=== PATIENT | female | born 1945 | race Caucasian/White ===

== ENCOUNTER 2020-02-03 16:52 | Observation (INO) | payer MEDICARE ==
[2020-02-03] MEDS ORDERED: Magnesium 2 GM/50 ML BAG (IN WATER) ONE (17:39)
--- NOTE | 2020-02-03 17:40 | RAD ---
Chest one view HISTORY: Palpitations. FINDINGS: Cardiac silhouette and pulmonary vasculature are unremarkable. Slight leftward deviation of the upper trachea with the appearance of left thyroid lobe prominence. Mediastinum is midline. Calcification over the aortic arch. No lobar consolidation or evidence of pne umothorax. IMPRESSION : Atherosclerosis. No abnormalities are demonstrated.
[2020-02-03 18:03] LABS: CKMB 1.3 ng/mL (0-6.6)
[2020-02-03] MEDS ORDERED: Ondansetron PF 4 MG/2 ML Vial IVP PRN (18:26)
[2020-02-03] MEDS ORDERED: Calcium Carbonate 500 MG ChewTAB PO PRN (18:26)
[2020-02-03] MEDS ORDERED: Acetaminophen 325 MG TAB PO PRN (18:26)
[2020-02-03] MEDS ORDERED: Senokot S 8.6-50 MG TAB PO PRN (18:26)
[2020-02-03] MEDS ORDERED: HYDROcodone/Acetaminophen 5/325 mg Tablet PO PRN (18:26)
[2020-02-03] MEDS ORDERED: Guaifenesin DM 100-10/5 ML UDCUP PO PRN (18:26)
[2020-02-03] MEDS ORDERED: Bisacodyl 10 MG SUPP PR PRN (18:26)
--- NOTE | 2020-02-03 19:03 | HP ---
REASON FOR ADMISSION: SVT; syncopal episodes, multiple. HISTORY OF PRESENTING ILLNESS: Patient gives history of multiple blackouts, which she calls it as spells that happened this morning nearly three of them. This started out 10 days back on a Tuesday when she had 2 episodes while she was in the kitchen. She says she would black out and come back likely for a few seconds. This happened twice on that Tuesday and again once more on the following Tuesday. When it happened 10 days back on a Tuesday, patient went to an urgent care in [place] and she was told her blood pressure was high and she also needs to see a rotor pilot. They called Dr. Malone's office and the earliest appointment they could get was on February 21. She has known murmur which was diagnosed nine years back, likely aortic stenosis. She has not had any further echo after that. No complaints of chest pain or fever. No cough or expectoration. No complaints of any current thyroid issue as such. Patient has never had a stress test in her life. PAST MEDICAL AND SURGICAL HISTORY: History of benign thyroid mass, for which she has seen Dr. Betancourt and had a fine-needle aspiration done in his office, which turned out to be benign; hypertension; appendectomy; hysterectomy; and echo done nine years back for likely aortic stenosis. Last colonoscopy was in 1962 and has never had one done. No history of bleeding per patient. CURRENT MEDICATIONS: 1. Patient is on aspirin 81 mg p.o. daily. 2. Lisinopril 20 mg p.o. daily. ALLERGIES: ALLERGIC TO PENICILLIN AND SULFA. PERSONAL HISTORY: Does not abuse alcohol or drugs. No history of smoking. She is the primary caregiver for her , who has had a tracheostomy, throat cancer and has also had a stroke and has essentially been bed-bound for the last 10 months. FAMILY HISTORY: Mother at the age of 69. She has had history of dementia. Father at the age of 83 from natural causes. CODE STATUS: Full. Power of patent prosecution attorney is her daughter, Shannon Cheek, as her is very sick. REVIEW OF SYSTEMS: CONSTITUTIONAL: Negative for weight loss or gain, ability to conduct usual activities. SKIN: Negative for rash, itching. EYES: Negative for double vision, pain. ENT/MOUTH: Negative for nose bleeding, neck stiffness, pain, tenderness. CARDIOVASCULAR: Negative for palpitations, dyspnea on exertion, orthopnea. RESPIRATORY: Negative for shortness of breath, wheezing, cough, hemoptysis, fever or night sweats. GASTROINTESTINAL: Negative for poor appetite, abdominal pain, heartburn, nausea , vomiting, constipation, or diarrhea. GENITOURINARY: Negative for urgency, frequency, dysuria, nocturia. MUSCULOSKELETAL: Negative for pain, swelling. NEUROLOGIC/PSYCHIATRIC: Negative for anxiety, depression. ALLERGY/IMMUNOLOGIC: Negative for skin rash, bleeding tendency. PHYSICAL EXAMINATION: GENERAL: Patient is a 74-year-old female, who is currently not in any acute distress. VITAL SIGNS: Blood pressure 158/100, pulse 86 per minute, respiratory rate 18 per minute, temperature 97.8 degrees Fahrenheit, and saturating 98% on room air. NECK: Supple. No elevated JVD. HEENT: Eyes; extraocular muscles intact. Pupils reacting to light. Oral cavity, mucous membranes are moist. No exudates or congestion. CARDIOVASCULAR SYSTEM: S1 and S2 heard. Murmur plus. RESPIRATORY: Air entry 1+ bilateral. No rales or rhonchi. ABDOMEN: Soft. Bowel sounds heard. No tenderness, rigidity, or guarding. EXTREMITIES: No peripheral edema or calf tenderness. VASCULAR SYSTEM: Peripheral pulses 1+ bilateral. No ischemic ulcerations or gangrene. CENTRAL NERVOUS SYSTEM: No gross focal motor deficits noted. Patient is alert, awake, and oriented well. PSYCHIATRIC SYSTEMS: Patient's mood is euthymic. No hallucinations or delusions. LABORATORY DATA: Patient has had three EKGs done. The first EKG done at 2:46 p.m. shows SVT with RBBB at the rate of 225 beats per minute. She has had a repeat EKG done at 2:51 p.m., which shows SVT at 222 beats per minute. QRS duration was 162 milliseconds. A third EKG done here shows normal sinus rhythm at 78 beats per minute with no gross ST-T wave changes. Chest x-ray done shows no abnormalities. Patient has had a prior ultrasound of the thyroid done in October of 2014, which showed a complex mass in the left lobe of thyroid measuring 4 cm. White count of 10, H and H 15 and 48, platelet count 218, MCV is 96 with 49% neutrophils and 34 % lymphocytes. Electrolytes stable. BUN 20, creatinine 1.1, and serum glucose 117. Liver enzymes within normal limits. Albumin 4.5. CK-MB 1.3, troponin I 0.04, and BNP 73. TSH 1.0. CLINICAL IMPRESSION AND PLAN: Patient will be admitted to telemetry under observation for now and can be switched over to inpatient if any procedures are planned, She has had recurrent episodes of supraventricular tachycardia with recurrent episodes of brief syncopal episodes. She also has likely aortic stenosis based on clinical exam. We will obtain echo with 2D Doppler for LV function. She has had 2 episodes of supraventricular tachycardia which spontaneously resolved in the ER. We will obtain a thyroid test, including ultrasound. Patient had plans to see Dr. Malone in his office on February 21. We will consult him. She will be kept n.p.o. after midnight. We will gently hydrate her with normal saline at 60 mls/hour. She will be on full-dose aspirin and we will place her on Lopressor 25 mg twice daily for now and she will be closely monitored on telemetry. Her has a PET scan scheduled on tuesday for his throat cancer and patient wants to be discharged by then so she could accompany him if possible. Job ID: [id number] [facility]
--- NOTE | 2020-02-03 19:52 | ULT ---
Thyroid sonogram HISTORY: Palpitations. Tachycardia. Thyroid mass. COMPARISON: 11/14/2014. FINDINGS: The right thyroid lobe measures up to 3.7 cm. It has a heterogeneous echotexture. There are 3 tiny cysts. 2. Very small lobular well circumscribed heterogeneous partially isoechoic nodules are present. They measure 0.7 cm and 0.6 cm greatest diameters. Isthmus is normal appearance. Left thyroid lobe measures up to 4.8 cm and contains a large, very heterogeneous lobular solid partia lly hypoechoic mass. It measures up to 4.4 cm length by 2.1 cm depth. Internal cystic component is apparent. The appearance of the lesion is not significantly changed in size and appearance from October 2014 exam . IMPRESSION : Large dominant mass of the left thyroid lobe is not significantly changed from the 2015 exam. Needle aspiration was performed. TI RADS 4. Moderately suspicious. Based on the appearance and size, tissue sampling is appropriate. Please correlate with results from prior FNA cytology.
[2020-02-03 21:12] LABS: Troponin I 0.037 ng/mL (< 0.028)
[2020-02-03] MEDS: Metoprolol Tartrate 25 MG TAB PO SCH (22:23)
[2020-02-03] MEDS: Sodium Chloride 0.9% 1,000 ML IV SCH (22:23)
[2020-02-03] MEDS: Famotidine 20 MG TAB PO SCH (22:28)
[2020-02-03 23:41] LABS: Troponin I 0.034 ng/mL (< 0.028)
[2020-02-04 00:02] VITALS: BMI 25.4
[2020-02-04 04:41] LABS: #Basophils 0.1 thou/uL (0.0-0.2); #Eosinphils 0.4 thou/uL (0.0-0.7); #Lymphocytes 2.3 thou/uL (1.20-3.40); #Monocytes 0.8 thou/uL (0.11-0.59); #Neutrophils 3.3 thou/uL (1.40-6.50); %Basophils 1.1 % (0.0-1.0); %Eosinophils 5.8 % (0.0-10.0); %Lymphocytes 34.1 % (21.0-51.0); %Monocytes 11.3 % (0.0-10.0); %Neutrophils 47.6 % (42.0-75.0); Hemoglobin 14.2 g/dL (12.0-16.0); Mean Corpuscular Hemoglobin 31.5 pg (27.0-31.0); Mean Corpuscular Volume 95.4 fL (78.0-98.0); Mean Platelet Volume 8.2 fL (7.4-10.4); Platelet Count 215 thou/uL (130-400); RBC Distribution Width 11.6 % (11.5-14.5); Red Blood Cell (RBC) Count 4.52 mill/uL (4.20-5.40); White Blood Cell (WBC) Count 6.8 thou/uL (4.8-10.8)
[2020-02-04 05:19] LABS: Anion Gap 11 mmol/L (10-20); BUN (Urea Nitrogen) 17 mg/dL (9.8-20.1); Calc. Creatinine Clearance 58 mL/min (70-130); Calcium 8.6 mg/dL (7.8-10.44); Carbon Dioxide 22 mmol/L (23-31); Chloride 110 mmol/L (98-107); Estimated GFR-MDRD 68; Glucose 89 mg/dL (83-110); Potassium 3.9 mmol/L (3.5-5.1); Sodium 139 mmol/L (136-145)
[2020-02-04 05:39] LABS: Free T4 (Free Thyroxine) 0.88 ng/dL (0.70-1.48); Thyroid Stimulating Hormone 1.1576 uIU/mL (0.35-4.94)
--- NOTE | 2020-02-04 08:56 | PDOC.HOSPP ---
- Subjective Encounter Date: 02/04/20 Encounter Time: 10:00 Subjective: Patient with no more SVT episodes overnight. Dr. Malone saw this AM and going to do ECHO and stress test. Dr. Jeanette JEFFERS has been by as well. - Objective Vital Signs & Weight: Vital Signs (12 hours) Temp Pulse Resp BP 02/04/20 04:00 97.9 F 66 16 119/60 Weight Weight 139 lb I&O: 02/03/20 02/04/20 02/05/20 06:59 06:59 06:59 Intake Total 450 Balance 450 Result Diagrams: 02/04/20 04:27 02/04/20 04:27 Hospitalist ROS - Review of Systems Constitutional: denies: fever Respiratory: denies: cough, shortness of breath Cardiovascular: denies: chest pain, palpitations - Medication Medications: Active Medications Generic Name Dose Route Start Last Admin Trade Name Freq PRN Reason Stop Dose Admin Famotidine 20 mg 02/03/20 21:00 02/03/20 22:28 Pepcid PO 20 mg BID MARY JANE Administration Sodium Chloride 1,000 mls @ 60 mls/hr 02/03/20 18:30 02/03/20 22:23 Normal Saline 0.9% IV 1,000 mls .[id number] MARY JANE Administration Metoprolol Tartrate 25 mg 02/03/20 21:00 02/03/20 22:23 Lopressor PO 25 mg BID MARY JANE Administration - Exam General Appearance: NAD, awake alert ENT: moist mucosa Heart: RRR, no gallops, no rubs, II/IV Respiratory: CTAB, no wheezes, no rales, no ronchi Gastrointestinal: soft, non-tender, non-distended, normal bowel sounds Psychiatric: normal affect, normal behavior, A&O x 3 Hosp A/P (1) Paroxysmal SVT (supraventricular tachycardia) Code(s): I47.1 - SUPRAVENTRICULAR TACHYCARDIA Status: Acute (2) Heart murmur Code(s): R01.1 - CARDIAC MURMUR, UNSPECIFIED Status: Acute (3) HTN (hypertension) Code(s): I10 - ESSENTIAL (PRIMARY) HYPERTENSION Status: Chronic (4) Aortic stenosis Code(s): I35.0 - NONRHEUMATIC AORTIC (VALVE) STENOSIS Status: Suspected - Plan ECHO, telemetry, cardiology consult- Faisal stress test Will likely need ablation Thyroid testing all normal, FNA of thyroid mass pending, previous was benign Patient states she needs to take her to his cancer appointment tomorrow for PET scan, considering leaving AMA this evening if no discharged. I did stress to her the importance of getting the SVT episodes under control before she can help her safely.
[2020-02-04] MEDS ORDERED: Prevnar 13-Val Conj/PF 0.5 ML SYRINGE IM ONE (09:00)
[2020-02-04] MEDS: Metoprolol Tartrate 25 MG TAB PO SCH ×2 (09:30→20:36)
[2020-02-04] MEDS: Enoxaparin Sodium 40 MG/0.4 ML SYRINGE SC SCH (09:30)
[2020-02-04] MEDS: Aspirin 325 MG TAB PO SCH (09:30)
[2020-02-04] MEDS: Lisinopril 5 MG TAB PO SCH (09:30)
[2020-02-04] MEDS: Famotidine 20 MG TAB PO SCH ×2 (09:31→20:39)
--- NOTE | 2020-02-04 10:04 | CON ---
DATE OF CONSULTATION: 02/04/2020 REASON FOR CONSULTATION: Near-syncope with severe tachycardia. HISTORY OF PRESENT ILLNESS: Ms. Gwen Abdullahi is a pleasant 74-year-old woman, who has had multiple episodes of near syncope. The first was over a week ago. She was sitting. She felt like she might faint and then she came back to normal. It seemed to come and go. Yesterday, she had recurrent episodes in the sitting position. She did go to the emergency room, where she was found to have a very rapid tachycardia. She has been transported here for further evaluation. She is asymptomatic now. No chest pain or pressure. There is an EKG showing heart rate of 225. She said it did go up to 250 beats per minute. The patient otherwise has no chest pain or pressure. She said she is aware of some vague palpitations during these episodes, but no definitive feeling of rapid heart rate. Otherwise, she has been healthy. 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 No tobacco or alcohol. PAST MEDICAL HISTORY: Other past history, the patient has a history of hypertension. MEDICATIONS: At home include; 1. Lisinopril. 2. Aspirin. REVIEW OF SYSTEMS: CONSTITUTIONAL: No significant weight gain or loss. VISION: No changes. HEARING: No changes. PULMONARY: No cough or wheezing. GASTROINTESTINAL: No nausea, vomiting, or diarrhea. SKIN: No rashes. NEUROLOGIC: No unilateral weakness or numbness. PSYCHIATRIC: No unusual depression or anxiety. PHYSICAL EXAMINATION: GENERAL: This is a pleasant 74-year-old woman, looks younger than her chronologic age. VITAL SIGNS: Blood pressure 119/60 and earlier was 157/85 and pulse 66 and regular. HEENT: Eyes, sclerae nonicteric. Mouth, mucous membranes moist. NECK: Supple. No lymphadenopathy. LUNGS: Clear. CARDIAC: Normal S1 and normal S2. There is no murmur, rub, or gallop. ABDOMEN: Soft and nontender. EXTREMITIES: Warm and dry. No clubbing or cyanosis. There is no edema. LABORATORY DATA: EKG did show some very rapid tachycardia 225 beats per minute. There is one definite narrow complex with some ST depression in the anterolateral leads. The rate is extremely rapid. There was another with a right bundle-branch block pattern, 225 beats per minute. The troponin levels were indeterminate, peak 0.42. ASSESSMENT: 1. Supraventricular tachycardia. 2. Troponin rise, probably related to demand ischemia. 3. History of hypertension. 4. Near syncopal episodes due to the severe tachycardia. PLAN: 1. Echocardiogram and stress test. 2. Consult EP. Will probably need ablation. Will notify Dr. Reid. Job ID: [id number]
[2020-02-04] MEDS ORDERED: Dexamethasone 20 MG/5 ML VIAL ONE (12:00)
[2020-02-04] MEDS ORDERED: Lidocaine 1% PF 5 ML VIAL ONE (12:00)
[2020-02-04] MEDS ORDERED: PROPOFOL 200 MG/20 ML VIAL ONE (12:00)
[2020-02-04] MEDS ORDERED: EPHEDRINE 25 MG/5 ML SYRINGE ONE (12:00)
[2020-02-04] MEDS ORDERED: Ondansetron PF 4 MG/2 ML Vial ONE (12:00)
[2020-02-04] MEDS ORDERED: PHENYLEPHRINE-NS 100 MCG/ML 10 ML SYRINGE ONE (12:00)
[2020-02-04] MEDS: Sodium Chloride 0.9% 1,000 ML IV SCH (12:32)
[2020-02-04] MEDS ORDERED: ADENOSINE 60 MG/20 ML VIAL ONE (13:16)
--- NOTE | 2020-02-04 13:49 | CON ---
DATE OF CONSULTATION: 02/04/2020 CONSULTED PHYSICIAN: Lio Reid MD. REASON FOR CONSULTATION: SVT. HISTORY OF PRESENT ILLNESS: Ms. Abdullahi is a 74-year-old woman, who presented to the hospital with multiple episodes of syncope that began 10 days ago. She would have episodes, where her vision went black and then she came back to. She never woke up on the floor. She was never slumped over. She had no loss of bowel or bladder. She had no heart racing, palpitations, nausea, vomiting, or additional associated symptoms. She has history of a heart murmur and also a benign thyroid mass with a prior biopsy. Other than that, hypertension is her only prior diagnosis. Since coming to the hospital, she has had episodes of SVT that are captured by EKG and correlate with the symptoms she had experienced at home with the blacking out of her vision. Cardiology has evaluated her. An echocardiogram is done, pending reading and a stress test is scheduled for later today. EP consultation has been requested regarding the SVT with ventricular rates of 225 to 250 beats per minute. REVIEW OF SYSTEMS: Twelve-point review of systems is negative except that listed above in the HPI. PAST MEDICAL HISTORY: 1. Hypertension. 2. Thyroid mass, benign by thyroid biopsy. 3. Heart murmur, unknown valve. HOME MEDICATIONS: Include; 1. Lisinopril 5 mg daily. 2. Aspirin 81 mg daily. ALLERGIES: PENICILLIN AND SULFA. FAMILY HISTORY: Insignificant. 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 Denies alcohol, tobacco, or illicit drug use. PHYSICAL EXAMINATION: VITAL SIGNS: Temperature 97.8 degrees Fahrenheit, pulse 62, blood pressure 180/ 93, respirations 20, and oxygen 97% on room air. GENERAL: The patient is alert and oriented. Speech is clear. Affect is appropriate. She is in no apparent distress at the time of the exam. Resting comfortably in bed. HEENT: She is normocephalic, atraumatic. Sclerae are anicteric. EOMs are intact. Oral mucosa is moist and pink with adequate dentition. She appears much younger than her stated age. NECK: Supple without jugular venous distention. There is no lymphadenopathy. Her trachea is midline. Thyroid mass is palpable. LUNGS: Clear to auscultation bilaterally without wheezes, crackles, or rhonchi. CARDIAC: Heart rate is irregularly irregular with crisp S1 and S2. PMI is nondisplaced. ABDOMEN: Soft and nontender without palpable masses. EXTREMITIES: Warm and dry to touch. Well perfused without clubbing, cyanosis, or edema. NEUROLOGIC: Grossly intact and nonfocal. Gait was not assessed. LABORATORY DATA: Hematology was unremarkable. Chemistry; potassium 3.9, magnesium not checked. TSH 1.15, T3 of 2.78, and T4 of 0.88. IMAGING DATA: Telemetry and EKGs largely reflect sinus rhythm. 12-lead EKGs show rapid SVT with a ventricular rate of 228 beats per minute initially with an incomplete right bundle-branch block. This is suggestive of AVNRT with a short RP interval and is supported with a subsequent EKG as well. Less likely would be a 1:1 atrial flutter. IMPRESSION: 1. 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 2. Syncope and collapse. 3. Hypertension. PLAN AND RECOMMENDATIONS: Ms. Abdullahi is having a stress test today with Cardiology and has already had an echocardiogram performed, pending results. We discussed the mechanism of SVT and the possible diagnoses of AVNRT versus 1:1 atrial flutter. My recommendation would be for electrophysiology study and potential ablation of arrhythmia. We discussed risks, benefits, and alternatives including hematoma, bleeding at the groin site, recurrent arrhythmias, pericardial effusion, need for pacemaker and/or anemia. She voices understanding and wishes to proceed. Possibilities could be arranged later today following her stress test. She is wishing to get home quickly to help take care of her . This could be arranged as an outpatient as well. If delayed as an outpatient due to the frequent nature of her episodes over the past few weeks, I would recommend consideration of antiarrhythmic therapy to suppress further episodes until the time of the EP study, [place] could be a consideration pending the results of her echo. Thank you for allowing me to participate in the care of this patient. Job ID: [id number] [facility]
--- NOTE | 2020-02-04 14:29 | NM ---
EXAM: CARDIAC SPECT HISTORY: Chest pain, hypertension, supraventricular tachycardia TECHNIQUE: A myocardial perfusion scan was performed using the single isotope 1 day protocol with lewis hnetium 99m sestamibi. [10 mCi] was injected intravenously for the rest exam followed by 30 mCi for the stress study. Pharmacologic stress with adenosine was monitored and interpreted by nurse practitioner Leslye Ware FINDINGS: Homogeneous tracer distribution is seen in the myocardial segments on stress and rest image s without fixed or reversible defects. Gated SPECT LVEF: 78% Wall motion exam: Normal IMPRESSION: Normal myocardial perfusion scan
[2020-02-04] MEDS ORDERED: Heparin 10,000 UNITS/1 ML VIAL ONE (15:00)
[2020-02-04] MEDS ORDERED: Fentanyl 100 MCG/2 ML VIAL ONE (15:27)
[2020-02-04] MEDS ORDERED: Isoproterenol 0.2 MG/1 ML AMP ONE (16:02)
[2020-02-04] MEDS ORDERED: Promethazine HCl 25 MG/ML VIAL SLOW IVP PRN (17:25)
[2020-02-04] MEDS ORDERED: Promethazine HCl 25 MG/ML VIAL IM PRN (17:25)
[2020-02-04] MEDS ORDERED: Ondansetron HCl/PF 4 MG/2 ML Vial IVP PRN (17:25)
[2020-02-04] MEDS ORDERED: Acetaminophen/Codeine 30-300mg Tablet PO PRN ×2 (18:45)
--- NOTE | 2020-02-04 20:25 | OP ---
DATE OF PROCEDURE: 02/04/2020 PROCEDURE PERFORMED: Electrophysiology study and radiofrequency ablation. REASON FOR PROCEDURE: Ms. Abdullahi is a 74-year-old lady without major cardiac issues in the past, preserved LVEF in the past. She was admitted with narrow complex SVT, ventricular rate of 225 beats per minute. She had both narrow complex and right bundle differential diagnosis of atrial flutter with one-to -one conduction versus atrial tachycardia or AV bill reentrant tachycardia. DESCRIPTION OF PROCEDURE: The patient received propofol and deep sedation with anesthesia specialist. Left and right femoral venous area was prepped, draped, and anesthetized using subcutaneous lidocaine. Under ultrasound guidance, the left femoral vein was cannulated x2 and on the right x1. In the left side, 6 and 8-Indonesian sheaths were used to advance an octapolar and decapolar catheter into the right atrium, right ventricle, His bundle, and CS position. Pacing, mapping, and recording were performed at each location including pacing left atrium from the CS. Basic EP study was performed with the following findings. Baseline rhythm was sinus rhythm with cycle length 550 milliseconds, AZ 179 milliseconds, QRS 61 milliseconds, QT 228 milliseconds, AH 131 milliseconds, HV 46 milliseconds, AV Wenckebach cycle length was 300 milliseconds, retrograde Wenckebach cycle length 560 milliseconds. AV bill ERP was measured 600/300 millisecond. No definite dual AV bill physiology was found. Retrograde VA conduction was concentric. Burst atrial pacing was performed, did not reinduce any sustained SVT. Nonsustained atrial flutter which appears to be typical isthmus dependent in morphology has been seen. Isuprel was also given up to 10 mcg with similar results. Therefore, the decision was made to perform a cavotricuspid isthmus ablation, as the most likely reason for the patient's narrow complex SVT with CS os pacing, cavotricuspid isthmus ablation was performed with the help of a ThermoCool SFST catheter. A 3D map of the right atrium was also created. A total of 4 ablations delivered at 40 moore with total duration about 5 minutes. We were able to prolong the transisthmus time from a baseline 30 milliseconds to 120 milliseconds in the posterior area, in the anterior area, it is up to 150 milliseconds. Fast posterior conduction was seen. Definite unilateral block was demonstrated. Following that, Isuprel was re-administered. Any reconnections re-ablated and we attempted re-induction of arrhythmia. At the end of the case, cardiac silhouette did not change. The catheter was withdrawn and the groin was closed with Vascade closure. No complications noted. IMPRESSION: 1. Nonsustained atrial flutter inducible, with CL and morphology matching presentation tachycardia. 2. CTI ablation performed with isthmus block. 3. No dual AV bill physiology or evindence of accessory pathways. 4. Normal AV bill and His-Purkinje function. PLAN: Monitor for recurrent arrhythmias. [facility] ID: [id number] [facility]
[2020-02-04] MEDS ORDERED: Cephalexin 250 MG CAP PO SCH (21:00)
[2020-02-05] MEDS: Sodium Chloride 0.9% 1,000 ML IV SCH (02:58)
[2020-02-05] MEDS ORDERED: Senokot S 8.6-50 MG TAB PO PRN (11:00)
[2020-02-05] MEDS: Enoxaparin Sodium 40 MG/0.4 ML SYRINGE SC SCH (11:01)
[2020-02-05] MEDS: Aspirin 325 MG TAB PO SCH (11:01)
[2020-02-05] MEDS: Metoprolol Tartrate 25 MG TAB PO SCH (11:02)
[2020-02-05] MEDS: Lisinopril 5 MG TAB PO SCH (11:02)
[2020-02-05] MEDS: Famotidine 20 MG TAB PO SCH (11:04)
--- NOTE | 2020-02-05 11:32 | PRG ---
DATE OF SERVICE: 02/05/2020 SUBJECTIVE: Ms. Abdullahi underwent electrophysiologic evaluation yesterday, was found to have atrial flutter, which was successfully ablated. Her blood pressure was relatively low last night after receiving beta-blockers. OBJECTIVE: VITAL SIGNS: This morning, her blood pressure was 95/54, pulse 66. LUNGS: Clear. CARDIAC: Normal S1. Normal S2. ABDOMEN: Soft, nontender. EXTREMITIES: No edema. Both groins are not tender. Stress test revealed no evidence of any the ischemia with normal stress test. Echo was normal. CONCLUSION: 1. Status post successful ablation for atrial flutter with a very rapid ventricular response. 2. Indeterminate troponin leak likely related to tachycardia. PLAN: 1. She will go home on metoprolol 25 mg twice a day. 2. Stop lisinopril. 3. She will see us in the office in February. Job ID: [id number]
[2020-02-05 13:28] VITALS: BP 122/59; TEMP 97.5
--- NOTE | 2020-02-05 15:23 | PDOC.HOSPP ---
- Subjective Encounter Date: 02/05/20 Encounter Time: 09:30 Subjective: Patient feeling well. No chest pain. No palpitations. Ready to go home. BP running on the low side this morning. - Objective Vital Signs & Weight: Vital Signs (12 hours) Temp Pulse Resp BP BP Pulse Ox 02/05/20 11:38 97.5 F L 64 16 122/59 L 98 02/05/20 07:02 97.7 F 66 16 95/54 L 95 02/05/20 03:34 97.6 F 60 16 84/47 L 96/62 96 Weight Weight 138 lb 1.6 oz I&O: 02/04/20 02/05/20 02/06/20 06:59 06:59 06:59 Intake Total 450 300 Output Total 1300 Balance 450 -1000 Result Diagrams: 02/04/20 04:27 02/04/20 04:27 Hospitalist ROS - Review of Systems Constitutional: denies: fever, chills Respiratory: denies: cough, shortness of breath Cardiovascular: denies: chest pain, palpitations Gastrointestinal: denies: nausea, vomiting, abdominal pain - Exam General Appearance: NAD, awake alert ENT: moist mucosa Heart: RRR, no murmur, no gallops, no rubs Respiratory: CTAB, no wheezes, no rales, no ronchi Gastrointestinal: soft, non-tender, non-distended, normal bowel sounds Psychiatric: normal affect, normal behavior, A&O x 3 Hosp A/P (1) Paroxysmal SVT (supraventricular tachycardia) Code(s): I47.1 - SUPRAVENTRICULAR TACHYCARDIA Status: Resolved (2) Heart murmur Code(s): R01.1 - CARDIAC MURMUR, UNSPECIFIED Status: Acute (3) HTN (hypertension) Code(s): I10 - ESSENTIAL (PRIMARY) HYPERTENSION Status: Chronic (4) Aortic stenosis Code(s): I35.0 - NONRHEUMATIC AORTIC (VALVE) STENOSIS Status: Ruled-out - Plan ECHO with good EF normal Aortic valve, telemetry, cardiology consult- Faisal stress test- negative s/p ablation Thyroid testing all normal, FNA of thyroid mass pending, previous was benign Patient with low normal BP this AM. Spoke with Dr. Malone and he recommended stopping Lisinopril and d/c on Metoprolol 25mg BID to start tonight. Cleared to d/c home.
--- NOTE | 2020-02-05 16:04 | PDOC.EP ---
- Subjective Date: 02/05/20 Time: 08:00 Interval History: she feels well after her EP study and ablation yesterday. She has not experienced any recurrent syncope episodes or SVT on telemetry. No tenderness or bleeding in her groin access site. she is eager to go home - Review of Systems Constitutional: denies: chills, fever, malaise, sweats, weakness, other Respiratory: denies: cough, dry, hemoptysis, pleuritic pain, shortness of breath , SOB with excertion, sputum, wheezing, other Cardiology: denies: chest pain, edema, heart racing, light headedness, paroxysmal noc. dyspnea, orthopnea, palpitations, passing out, pleuritic pain, pressure, swelling, other Gastrointestinal: denies: abdominal pain, constipation, diarrhea, hematochezia, melena, nausea, vomitting, other Musculoskeletal: denies: unstable gait, falls, neck pain, shoulder pain, arm pain, hand pain, leg pain, foot pain, other - Objective Allergies/Adverse Reactions: Allergies Allergy/AdvReac Type Severity Reaction Status Date / Time Penicillins Allergy Verified 02/03/20 22:08 Sulfa (Sulfonamide Allergy Verified 02/03/20 22:08 Antibiotics) Vital Signs & Weight: Vital Signs Temp Pulse Resp BP Pulse Ox 02/05/20 11:38 97.5 F L 64 16 122/59 L 98 02/05/20 07:02 97.7 F 66 16 95/54 L 95 Weight 138 lb 1.6 oz I/O: I/O 02/04/20 02/05/20 02/06/20 06:59 06:59 06:59 Intake Total 450 300 Output Total 1300 Balance 450 -1000 - Physical Exam General: alert & oriented x3, appears well, no apparent distress, speech clear, affect appropriate HEENT: mucus membranes moist, normocephaly Neck: supple neck, midline trachea, no JVD/HJR, no masses, no bruit, no lymphadenopathy, no thromegaly Cardiology: regular rate and rhythm, no murmur, regular rate, regular rhythm, PMI nondisplaced Lungs: clear to auscultation, normal breath sounds, normal exam, no wheeze, rales, rhonchi, no wheezes, no rales, no rhonchi Neurology: cranial nerve 2-12 intact, grossly intact, motor function intact, sensory function intact, negative rhomberg, coordination normal, no lateralizing findings - Labs Result Diagrams: 02/04/20 04:27 02/04/20 04:27 - EKG Interpretation EKG Method: Telemetry EKG shows: Sinus rhythm - Assessment/Plan Assessment/Plan: 1. SVT 2. Syncope and collapse EP study yesterday was only inducible for nonsustained rapid 1:1 atrial flutter , and the ventricular rates were consistent with the SVT episodes captured on 12 lead EKG. It appeared cavotricuspid isthmus dependent in origin and CTI flutter ablation was performed. I would recommend continuing low dose beta lilly therapy if BP permits. OK for DC by EP. Follow up in 6 weeks
--- NOTE | 2020-02-06 07:34 | DIS ---
DATE OF ADMISSION: 02/03/2020 DATE OF DISCHARGE: 02/05/2020 PRIMARY CARE PHYSICIAN: Danya Vyas DO REASON FOR ADMISSION: SVT with syncopal episodes. DIAGNOSES AT DISCHARGE: 1. Paroxysmal supraventricular tachycardia, resolved after ablation. 2. Heart murmur with normal valves on echocardiogram. 3. Hypertension. 4. Thyroid nodule, unchanged from previous. PROCEDURES: 1. Ultrasound of the thyroid showing large dominant mass in the left thyroid lobe, not significantly changed from 2015 exam, when a needle aspiration was performed and had benign pathology. 2. Nuclear medicine stress testing showing normal myocardial perfusion scan. 3. Echocardiogram showing ejection fraction of 60% to 65% with normal valvular structure. 4. EP study with radiofrequency ablation. CONSULTATIONS: 1. Cardiology, Dr. Malone. 2. Electrophysiology, Dr. Reid. SUMMARY OF HOSPITAL COURSE: This is a 74-year-old white female with history of hypertension, who came in with multiple blackout spells over the last few days. She ended up coming into the emergency room, where she was seen to have a nonsustained supraventricular tachycardia with reproduction of her symptoms. She also was noted to have a thyroid nodule. She was admitted to the hospital. Thyroid testing was done, which was normal. Ultrasound showed unchanged from her previous thyroid scan in 2015, when she had a biopsy that was benign. Dr. Malone was consulted. He did get a stress test on her, which was normal and echocardiogram as above. Dr. Reid was consulted. He did take her back for EP study and then did do an ablation with resolution of her SVT episodes. After the ablation, she did have some low blood pressures, did have to hold her medications a few times. Eventually, Dr. Malone decided to completely discontinue her lisinopril and just send her home on a very small dose of metoprolol twice a day. The patient was doing well on the day of discharge and was eager to go home. DISCHARGE MANAGEMENT: Discharged home. ACTIVITY: As tolerated. DIET: Healthy heart diet. FOLLOWUP: Follow up with Dr. Vyas in 7 days, with Dr. Reid as directed, and with Dr. Malone's office as directed. DISCHARGE MEDICATIONS: 1. Metoprolol tartrate 25 mg twice a day, 60 tablets dispensed. 2. Continue aspirin 81 mg daily. 3. Stop lisinopril. Job ID: [id number]
[2020-02-06] MEDS ORDERED: Famotidine 20 MG TAB PO SCH (09:00)
== END 2020-02-05 11:38 | disposition home or self-care (01) ==
LOC: ERS 16:52 → 2NO 17:31
PROVIDERS: ADMIT Internal Medicine; ATTEND Internal Medicine
PROC: 02583ZZ Destruction of Conduction Mechanism, Percutaneous Approach (ICD-10-PCS; principal; 2020-02-04)
PROC: 02K83ZZ Map Conduction Mechanism, Percutaneous Approach (ICD-10-PCS; 2020-02-04)
PROC: 4A023FZ Measurement of Cardiac Rhythm, Percutaneous Approach (ICD-10-PCS; 2020-02-04)
PROC: 4A0234Z Measurement of Cardiac Electrical Activity, Percutaneous Approach (ICD-10-PCS; 2020-02-04)
DX: I47.1 Supraventricular tachycardia (principal); I48.92 Unspecified atrial flutter; R55 Syncope and collapse; R01.1 Cardiac murmur, unspecified; I10 Essential (primary) hypertension; E04.2 Nontoxic multinodular goiter; I35.0 Nonrheumatic aortic (valve) stenosis; I70.90 Unspecified atherosclerosis; Z79.82 Long term (current) use of aspirin; Z79.899 Other long term (current) drug therapy; Z88.0 Allergy status to penicillin; Z88.2 Allergy status to sulfonamides
CPT/HCPCS: 71045; 76536; 76942; 78452; 80048; 82553; 84439; 84443; 84481; 84484; 85025; 93005 ×3; 93017; 93306; 93613; 93623; 93653; 96365; 96372; 99285; A9500; C1730; C1732; G0378 ×4; 36415; 93010; J0153; J1100; J1644; J1650; J2405; J2704; J3010; J3475

== ENCOUNTER 2020-10-02 11:30 | Emergency (ER) | payer MEDICARE ==
[2020-10-02] MEDS ORDERED: hydrALAZINE 20 MG/ML VIAL ONE (12:56)
[2020-10-02] MEDS ORDERED: Nitroglycerin 2% Ointment 1 INCH/1 GM Packet ONE (13:02)
[2020-10-02] MEDS ORDERED: Aspirin Chewable 81 MG TAB ONE (13:07)
== END 2020-10-02 14:22 | disposition home or self-care (01) ==
LOC: ERS 11:30
DX: I10 Essential (primary) hypertension (principal); Z79.01 Long term (current) use of anticoagulants; Z79.899 Other long term (current) drug therapy
CPT/HCPCS: 71045; 80053; 82550; 83690; 83880; 84484; 85025; 93005; 96374; J0360

== ENCOUNTER 2020-11-26 15:02 | Outpatient (CLI) | payer MEDICARE ==
[2020-11-26 16:32] LABS: PTT 27.9 sec (22.0-33.0)
[2020-11-26 16:33] LABS: Anion Gap 13 mmol/L (10-20); BUN (Urea Nitrogen) 21 mg/dL (9.8-20.1); Chloride 103 mmol/L (98-107); Sodium 140 mmol/L (136-145)
[2020-11-26 16:47] LABS: Mean Corpuscular HGB CONC 33.8 g/dL (32.0-36.0); Mean Corpuscular Hemoglobin 32.3 pg (27.0-33.0); Mean Corpuscular Volume 95.4 fl (81.6-98.3); Mean Platelet Volume 10.5 fl (7.4-10.4); Platelet Count 224 10x3/uL (150-450); RBC Distribution Width 12.4 % (11.5-14.5); Red Blood Cell (RBC) Count 4.34 10x6/uL (3.90-5.03)
[2020-11-26 17:27] LABS: Calc. Creatinine Clearance 0 mL/min (70-130); Calcium 9.8 mg/dL (7.8-10.44); Carbon Dioxide 28 mmol/L (23-31); Glucose 149 mg/dL (83-110)
[2020-11-27 01:16] LABS: SARS-CoV-2 PCR by NAA Not Detected (NotDetected)
== END 2020-11-26 15:03 | disposition home or self-care (01) ==
LOC: LABBT 15:02
PROVIDERS: ATTEND Internal Medicine Cardiovascular Disease
DX: Z01.818 Encounter for other preprocedural examination (principal); I48.91 Unspecified atrial fibrillation; Z20.822 Contact with and (suspected) exposure to COVID-19
CPT/HCPCS: 80048; 85027; 85610; 85730; U0003; U0005; 87635; 93005; 93010

== ENCOUNTER 2020-12-01 05:55 | Observation (INO) | payer MEDICARE ==
[2020-11-27 11:30] VITALS: BMI 25.6
[2020-12-01] MEDS ORDERED: Heparin 10,000 UNITS/ 10 ML VIAL ONE ×2 (06:41→09:09)
[2020-12-01] MEDS ORDERED: Fentanyl 100 MCG/2 ML VIAL ONE (07:52)
[2020-12-01] MEDS ORDERED: Ondansetron PF 4 MG/2 ML Vial ONE (08:03)
[2020-12-01] MEDS ORDERED: Glycopyrrolate 0.2 MG/ML 5 ML SYRINGE ONE (08:03)
[2020-12-01] MEDS ORDERED: PHENYLEPHRINE-NS 100 MCG/ML 10 ML SYRINGE ONE ×2 (08:03→11:06)
[2020-12-01] MEDS ORDERED: PROPOFOL 200 MG/20 ML VIAL ONE (08:03)
[2020-12-01] MEDS ORDERED: ePHEDrine Sulfate 50 MG/10 ML VIAL ONE (08:03)
[2020-12-01] MEDS ORDERED: Dexamethasone 20 MG/5 ML VIAL ONE (08:03)
[2020-12-01] MEDS ORDERED: Lidocaine 1% PF 5 ML VIAL ONE (08:03)
[2020-12-01] MEDS ORDERED: Rocuronium Bromide 10 MG/ML (10ML VIAL) ONE (08:03)
[2020-12-01] MEDS ORDERED: Heparin 25,000 units/D5W 500 ML ONE (09:10)
[2020-12-01] MEDS ORDERED: Phenylephrine 10 MG/ML VIAL ONE (11:03)
[2020-12-01] MEDS ORDERED: Protamine Sulfate 50 MG/5 ML VIAL ONE (11:06)
[2020-12-01] MEDS ORDERED: Ketorolac Tromethamine 30 MG/ML VIAL IVP PRN (12:21)
[2020-12-01] MEDS ORDERED: cloNIDine 0.1 MG TAB PO PRN (12:22)
[2020-12-01] MEDS ORDERED: Acetaminophen/Codeine 30-300mg Tablet PO PRN ×2 (12:30)
[2020-12-01] MEDS: Sucralfate 1 GM TAB PO SCH ×3 (19:54→23:31)
[2020-12-01] MEDS: Apixaban 5 MG TAB PO SCH (20:57)
[2020-12-01] MEDS ORDERED: Rosuvastatin 20 MG TAB PO SCH (21:00)
[2020-12-02] MEDS: Sucralfate 1 GM TAB PO SCH (05:52)
[2020-12-02] MEDS: Apixaban 5 MG TAB PO SCH (08:02)
[2020-12-02 08:32] VITALS: BP 123/68; TEMP 97.8
[2020-12-02] MEDS ORDERED: Amlodipine 5 MG TAB PO SCH (09:00)
[2020-12-02] MEDS ORDERED: Furosemide 40 MG TAB PO PRN (09:15)
[2020-12-02] MEDS ORDERED: Potassium Chloride 20 MEQ TAB PO PRN ×2 (09:15→10:03)
[2020-12-02] MEDS ORDERED: Metoprolol Tartrate 50 MG TAB PO SCH (21:00)
== END 2020-12-02 11:36 | disposition home or self-care (01) ==
LOC: CCL 05:55 → 2SW 11:57
PROVIDERS: ADMIT Internal Medicine Cardiovascular Disease; ATTEND Internal Medicine Cardiovascular Disease
PROC: 02583ZZ Destruction of Conduction Mechanism, Percutaneous Approach (ICD-10-PCS; principal; 2020-12-01)
PROC: 02K83ZZ Map Conduction Mechanism, Percutaneous Approach (ICD-10-PCS; 2020-12-01)
PROC: 4A023FZ Measurement of Cardiac Rhythm, Percutaneous Approach (ICD-10-PCS; 2020-12-01)
PROC: 4A0234Z Measurement of Cardiac Electrical Activity, Percutaneous Approach (ICD-10-PCS; 2020-12-01)
DX: I48.0 Paroxysmal atrial fibrillation (principal); I48.3 Typical atrial flutter; I48.4 Atypical atrial flutter; I10 Essential (primary) hypertension; Z79.01 Long term (current) use of anticoagulants; Z79.899 Other long term (current) drug therapy; Z88.0 Allergy status to penicillin; Z88.2 Allergy status to sulfonamides
CPT/HCPCS: 76942; 85347 ×2; 93005 ×2; 93613; 93622; 93623; 93655; 93656; 93662; C1732 ×3; C1759; C1884; G0378 ×2; 93010; J1100; J1644; J2370; J2405; J2704; J2720; J3010